=== PATIENT | female | born 1940 | race Caucasian/White ===

== ENCOUNTER 2021-09-27 13:50 | Inpatient (IN) | payer MEDICARE ==
[~2021-09-27] VITALS: Ht 152.4 cm; Wt 40.8 kg
[2021-09-27] VITALS (11 sets, daily range): BP systolic 50–150; BP diastolic 00–71
[2021-09-27 14:14] LABS: BASO % 0.2 % (0.0-1.0); HEMATOCRIT 40.7 % (37.0-47.0); LYMPH # 0.2 10*3/uL (1.3-4.4); MEAN CELL VOLUME 104.4 fl (81.0-99.0); MEAN CORPUSCULAR HGB 28.5 pg (27.0-31.0); MEAN CORPUSCULAR HGB CONC 27.3 g/dl (33.0-37.0); MEAN PLATELET VOLUME 10.9 fl (9.6-12.3); MONO # 0.3 10*3/uL (0.1-1.0); MONO % 6.1 % (3.0-9.0); NEUT # 4.5 10*3/uL (2.3-7.9); NEUT % 89.3 % (47.0-73.0); PLATELET COUNT AUTOMATED 313 10*3/uL (130-400); RED CELL DISTRI WIDTH 12.8 % (0-14.5); WHITE BLOOD COUNT 5.1 10*3/uL (4.8-10.8)
[2021-09-27 14:31] LABS: ALBUMIN 2.9 gm/dl (3.1-4.5); BUN 23 mg/dl (7-24); CHLORIDE 94 mmol/L (98-107); CREATININE 0.68 mg/dL (0.55-1.02); LIPASE 114 U/L (73-393); POTASSIUM 3.9 mmol/L (3.5-5.1); SGOT/AST 43 IU/L (3-35); SGPT/ALT 35 U/L (12-78); SODIUM 142 mmol/L (136-145); TOTAL PROTEIN 6.7 gm/dL (6.4-8.2)
[2021-09-27 14:32] LABS: ALKALINE PHOSPHATASE 65 U/L (45-117)
[2021-09-27 14:34] LABS: ACT PARTIAL THROMBO TIME 27.4 SECONDS (20.0-32.1)
[2021-09-27 16:52] LABS: ARTERIAL BLOOD GAS PH 7.2 (7.35-7.45); ARTERIAL BLOOD GAS PO2 149.8 (80-90)
[2021-09-28] MEDS ORDERED: ASPIRIN ADULT L81 M1 PO (00:46)
[2021-09-28 07:02] LABS: BASO % 0.1 % (0.0-1.0); HEMATOCRIT 42.5 % (37.0-47.0); LYMPH # 0.4 10*3/uL (1.3-4.4); LYMPH % 5.4 % (27.0-41.0); MEAN CELL VOLUME 107.1 fl (81.0-99.0); MEAN CORPUSCULAR HGB 28.2 pg (27.0-31.0); MEAN CORPUSCULAR HGB CONC 26.4 g/dl (33.0-37.0); MEAN PLATELET VOLUME 11.2 fl (9.6-12.3); MONO # 0.6 10*3/uL (0.1-1.0); MONO % 8.5 % (3.0-9.0); NEUT % 85.6 % (47.0-73.0); PLATELET COUNT AUTOMATED 337 10*3/uL (130-400); RED BLOOD COUNT 3.97 10*6/uL (4.10-5.10); RED CELL DISTRI WIDTH 12.9 % (0-14.5); WHITE BLOOD COUNT 7.1 10*3/uL (4.8-10.8)
[2021-09-28 07:07] LABS: ALKALINE PHOSPHATASE 62 U/L (45-117); BUN 25 mg/dl (7-24); CHLORIDE 93 mmol/L (98-107); CREATININE 0.35 mg/dL (0.55-1.02); POTASSIUM 4.5 mmol/L (3.5-5.1); SGOT/AST 33 IU/L (3-35); SGPT/ALT 34 U/L (12-78); SODIUM 142 mmol/L (136-145); TOTAL PROTEIN 6.5 gm/dL (6.4-8.2)
[2021-09-28 07:19] LABS: ACT PARTIAL THROMBO TIME 26.9 SECONDS (20.0-32.1)
[2021-09-28 08:00] VITALS: BP 71/42
== END 2021-09-28 09:03 | disposition hospice, inpatient (51) | DRG 871 ==
LOC: ED 13:50 → EDHOLD 17:19 → 4E 20:20
PROVIDERS: Emergency Medicine; Hospitalist; ADMIT Internal Medicine; ATTEND Internal Medicine
DX: A41.9 Sepsis, unspecified organism (principal); J96.02 Acute respiratory failure with hypercapnia; J15.6 Pneumonia due to other Gram-negative bacteria; E44.0 Moderate protein-calorie malnutrition; Z68.1 Body mass index [BMI] 19.9 or less, adult; Z66 Do not resuscitate; Z51.5 Encounter for palliative care; R65.20 Severe sepsis without septic shock; I95.9 Hypotension, unspecified; Z20.822 Contact with and (suspected) exposure to COVID-19; D53.9 Nutritional anemia, unspecified; R73.9 Hyperglycemia, unspecified; R74.01 Elevation of levels of liver transaminase levels; Z88.1 Allergy status to other antibiotic agents

== ENCOUNTER 2021-09-28 09:06 | Inpatient (IN) | payer OTHER, MEDICARE ==
[~2021-09-28] VITALS: Ht 152.4 cm; Wt 40.8 kg
[~2021-09-28 09:06] MED LIST: ASPIRIN ADULT L81 M1 PO
== END 2021-09-28 10:54 | DRG 871 ==
LOC: 4E 09:06
PROVIDERS: ADMIT Internal Medicine; ATTEND Internal Medicine
DX: A41.9 Sepsis, unspecified organism (principal); J96.02 Acute respiratory failure with hypercapnia; J18.9 Pneumonia, unspecified organism; Z66 Do not resuscitate; R65.20 Severe sepsis without septic shock; Z51.5 Encounter for palliative care; I48.91 Unspecified atrial fibrillation; I95.9 Hypotension, unspecified